=== PATIENT | female | born 1965 | race Two or more races ===

== ENCOUNTER 2023-05-02 10:07 | Outpatient (REF) | payer OTHER, SELFPAY ==
--- NOTE | ~2023-05-02 | MR_ITS ---
EXAMINATION: MR BRAIN WITHOUT CONTRAST CLINICAL INFORMATION: Myoclonus tremor. COMPARISON: There are no prior studies available for comparison. TECHNIQUE: MRI of the brain was obtained using routine sequences without contrast. FINDINGS: No diffusion abnormalities are identified to suggest an acute or subacute infarct. No mass effect or midline shift is seen. The ventricles and sulci are slightly commensurately prominent consistent with diffuse volume loss. There are a few scattered foci of hyperintense T2 and FLAIR signal in the periventricular and subcortical white matter, most consistent with mild chronic microvascular ischemic changes. No extra-axial fluid collections are seen. The brainstem appears normal. No pathologic magnetic susceptibility artifact is identified on the gradient refocused acquisition. The cerebellar tonsils have normal contour and position, and the craniocervical junction appears normal. Marrow signal and midline structures are normal. The major intracranial flow-voids at the level of the [place] are preserved. The dural venous sinus flow-voids are maintained. The mastoid air cells and paranasal sinuses are well-aerated. MR/MR head/brain wo con IMPRESSION: 1. There are no acute bleeds or territorial infarcts. No masses are demonstrated. 2. There are chronic microvascular ischemic changes and there is diffuse volume loss.
== END 2023-05-02 10:08 | disposition home or self-care (01) ==
LOC: HO.MRI 10:07
PROVIDERS: PCP Internal Medicine; Visit Provider Psychiatry & Neurology Neurology
DX: G25.3 Myoclonus (principal)
CPT/HCPCS: 70551

== ENCOUNTER 2024-10-05 15:36 | Outpatient (REF) | payer OTHER, SELFPAY ==
[2024-10-05 18:13] LABS: Folate 11.8 ng/mL (> or = 4.0); Vitamin B12 525 pg/mL (200-900)
== END 2024-10-05 15:37 | disposition home or self-care (01) ==
LOC: HO.LAB 15:36
PROVIDERS: PCP Internal Medicine; Visit Provider Registered Nurse
DX: G31.84 Mild cognitive impairment of uncertain or unknown etiology (principal)
CPT/HCPCS: 36415; 82607; 82746

== ENCOUNTER 2024-10-05 15:36 | Outpatient (AMB) | payer OTHER, SELFPAY ==
--- NOTE | 2024-10-05 15:46 | MHC.OFFVIS ---
Intake Visit Reasons: Follow up Allergies No Known Allergies Allergy (Verified 10/05/24 15:51) Medication List - Last Reconciled 10/05/24 by Jaki Barahona CNP amlodipine 5 mg PO DAILY clonazepam (Klonopin) 0.5 mg PO BEDTIME 30 days clonidine HCl 0.1 mg PO DAILY PRN cyclobenzaprine 10 mg PO TID duloxetine 60 mg PO BID famotidine 40 mg PO DAILY hydrochlorothiazide 25 mg PO DAILY hydroxyzine pamoate 25 - 50 mg PO BEDTIME lamotrigine 100 mg orally 1 tablet in AM and 2 tablets at bedtime; metformin 500 mg PO BID naproxen 500 mg PO DAILY olmesartan 40 mg PO DAILY HPI Comments Details: She was doing okay. She was taking clonazepam 0.5mg at bedtime along with lamotrigine 100mg in the morning and 200mg at bedtime. Involuntary movements were much better with medication. She was still tired during the day. Sleep was not so good, has CPAP but does not use. She was also having some trouble with word recall and thinking of words for certain things during conversations when speaking [place] which was her first language. Forgetful at times and misplaces things. She was sometimes calling her dogs by her children's names by accident. She had some labs done by PCP earlier this month including Lyme which was apparently negative and thyroid which was apparently okay. She could not remember if B12 was checked. Balance off at times. Mood was up and down. She was under some stress. She was working with therapist weekly and psychiatrist monthly. Involuntary movements were completely gone with clonazepam 0.5mg twice a day, but she was very tired with medication. She lost a lot of hair and tremors with Depakote although it was working well and stopped medication. Her myoclonic jerks had stopped for 1 month and now gets mild one every couple of weeks when stressed. She has sudden jerks in her body or limbs since Nov 2022 that can wake her up. Happens any time while awake or asleep multiple times a day now. No triggers except of she is startled. Can be either shoulder and occasionally the leg. Gets intermittent tremors. Has urinary urgency and occasional incontinence. Diffuse pains that come and go, relieved by naprosyn. Some palpitations continuing. Her hearing is not impaired. She has no tinnitus. There is no visual blurring of visual disturbance and no diplopia. Occasionally she gets some tingling in her hands and feet. She also has chronic pain in her whole body for several years from FM. Also has some neck pain and low back pain. She gets occasional sharp shooting pains in the scalp. MRI of the brain was done in November of 2014 and was personally reviewed by Dr. Nguyen, shows minimal microvascular white matter hyperintensities in the frontal lobe consistent with minimal microvascular disease. [facility] Medical History (Updated 10/05/24 @ 16:04 by Jaki Barahona, CHANA) Myoclonus Fibromyalgia Hypertension Dizziness Review of Systems Const Denies chills, Denies daytime sleepiness, Reports difficulty sleeping, Denies fatigue, Denies fever(s), Denies frequent falls, Reports headache(s), Denies increased appetite, Denies poor appetite, Reports snoring, Denies weakness, Denies weight gain and Denies weight loss Eyes Denies loss of vision ENT Denies vertigo, Reports dizziness, Reports headache(s) and Reports neck pain Card Denies chest pain at rest, Denies chest pain with activity, Denies syncope, Denies leg edema, Denies palpitations, Denies dyspnea and Denies dyspnea on exertion Resp Denies cough, Denies dyspnea, Denies dyspnea on exertion and Reports snoring GI Denies abdominal pain, Denies constipation, Denies heartburn, Denies diarrhea and Denies nausea Denies urinary frequency, Denies urinary incontinence and Denies urinary urgency Musc Denies abnormal gait, Reports back pain, Reports myalgias, Reports arthralgias, Reports neck pain, Reports numbness and Reports tingling Neuro Denies abnormal gait, Denies vertigo, Reports dizziness, Denies syncope, Denies frequent falls, Reports headache(s), Denies lack of coordination, Denies loss of vision, Reports memory loss, Reports numbness, Denies Other visual disturbances, Denies restless legs, Denies seizure-like activity, Reports tingling, Denies paresthesias, Reports tremor(s) and Denies weakness Psych Reports anxiety, Reports depression, Denies auditory hallucinations, Reports memory loss and Denies visual hallucinations Endo Denies fatigue and Denies palpitations Physical Exam Const Other: General Appearance:? normal, in no acute distress. Heart:? S1, S2 normal, no murmurs. Lungs:? clear anteriorly and posteriorly. Musculoskeletal:? normal. Extremities:? no edema. Psych:? alert, as below. Neuro Other: Abnormal Neurological Findings:?MMSE 22/30 Mental Status: alert, as below Cranial Nerves: Pupils are equal, round, and reactive to light. External ocular muscles are intact. Visual rocha are full, no ptosis. Face is symmetrical, no facial weakness or droop. Facial sensations are normal. Tongue protrudes in midline. Palate elevates symmetrically. Shoulder shrugging is normal Motor Examination: Normal muscle tone, bulk and strength. No atrophy or fasciculations. No drift of the extended upper extremities. DTR 2+. Plantars are flexor. Straight Leg R[place] degrees. Sensory Exam: Normal light touch, temperature, pinprick, vibration, and joint-position sensations. Rhomberg sign is absent. Coordination: No ataxia. No titubation. [id number], [id number] test, and rapid alternating movements were normal. Gait Exam: Within normal limits. Cerebellar Signs: [id number] and [id number] is normal. No dysdiadochokinesia. Extrapyramidal System: No tremor, rigidity with normal facial expressions. No bradykinesia. No bradyphrenia. Normal arm swing and posture. No propulsion or retropulsion. Speech: Normal. No dysphasia or dysarthria. MMSE Level of Consciousness: Alert. Orientation: Knows correct year, month, day and season. Does not know date. Knows correct city, county and state. Knows correct location and floor. Registration: Able to register 3 objects. Attention: Unable to do serial 7's Recall: Able to recall 1 out of 3 objects. Language: Normal spontaneous speech, fluency, repetition, naming, comprehension, reading, and writing. Total Score: 22/30. Results Reviewed Results Reviewed: 03/20/23 EEG- Recurrent paroxysmal sharp bursts of theta 0/5-2 secs right more than left hemisphere. 05/02/23 MRI chronic microvascular ischemic changes and there is diffuse volume loss. 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 Continue lamotrigine 100mg 1 tablet in the morning and 2 tablets at bedtime. (2) MCI (mild cognitive impairment): Code(s): G31.84 - Mild cognitive impairment of uncertain or unknown etiology Category: Medical Plan: Stay physically and socially active. She had labs done by PCP earlier this month. She could not remember if B12 level was checked and lab was ordered. Orders: Orders Vitamin B12 and Folate Today G31.84 - Mild cognitive impairment of uncertain or unknown etiology Coding Level of Care Code Est Pt Level 4 (92921) Diagnoses Myoclonus G25.3 MCI (mild cognitive impairment) G31.84
--- OUTSIDE RECORDS SUMMARY | 2024-10-05 16:04 | XMS_ITS | Clinical Summary ---
Author Organization [facility] [address] [facility] Building Address [address] [place] [address] Phone Care Team Providers Care Manager Credit Risk Name Role Phone Adriano Brandt MD Primary Care Provider [phone] Allergies No known active allergies Medications amphetamine-dextr oamphetamine (ADDERALL) 15 mg tablet Take 1 Tablet by mouth daily. Active DULoxetine (CYMBALTA) [address] capsule Take 1 Capsule by mouth daily. Active hydrOXYzine pamoate (VISTARIL) 25 mg capsule Per Psych 020 Active blood-glucose meter kit Use daily or as directed for monitoring of diabetes. 1 each 024 2024 Active lancets lancets Check blood sugar 4 times a day or as directed. 200 each 11 024 2024 Active glucose blood test stripIndications: Controlled type 2 diabetes mellitus without complication, without long-term current use of insulin ([facility] V24, [facility] V28) Use once daily to test blood sugar. Freestyle lite brand. 100 each 5 024 Active lamoTRIgine (LaMICtal) 100 mg tablet Take 1.5 tablets (150 mg total) by mouth 2 (two) times a day. 025 Active cyclobenzaprine (FLEXERIL) 10 mg tablet Take 1 tablet (10 mg total) by mouth if needed. 024 Active hydroCHLOROthiazi de (HYDRODIURIL) 25 mg tablet Take 1 tablet (25 mg total) by mouth 1 (one) time each day. Active clonazePAM (KlonoPIN) 0.5 mg disintegrating tablet Take 1 tablet (0.5 mg total) by mouth 1 (one) time each day. Active olmesartan (BENICAR) 40 mg tablet Take 1 tablet by mouth once daily 90 tablet 1 025 Active metFORMIN (GLUCOPHAGE) 500 mg tablet TAKE 1 TABLET BY MOUTH TWICE DAILY WITH MEALS 180 tablet 1 025 Active amLODIPine (NORVASC) 5 mg tablet Take 1 tablet (5 mg total) by mouth 1 (one) time each day. 90 tablet 1 025 Active omeprazole (PriLOSEC) [address] capsule Take 1 capsule (20 mg total) by mouth 1 (one) time each day. Do not crush or chew. 30 each 5 025 2024 Active naproxen (NAPROSYN) 500 mg tablet Take 1 tablet by mouth once daily 90 tablet 025 2024 Discontinued(T herapy completed) celecoxib (CeleBREX) 200 mg capsule Take 1 capsule (200 mg total) by mouth 2 (two) times a day. 60 each 5 025 2024 Discontinued acetaminophen (Tylenol 8 Hour) 650 mg 8 hr tablet Take 1 tablet (650 mg total) by mouth every 8 (eight) hours if needed for mild pain for up to 10 days. Do not crush, chew, or split. 30 tablet 025 2024 Active Problems Problem Noted Date Diagnosed Date Seizure ([facility] V24, [facility] V28) 01/28/2024 Gastroesophageal reflux disease without esophagi tis 02/02/2022 ROSALIA (obstructive sleep apnea) 11/29/2021 Chronic vertigo 09/25/2016 Low back pain with right-sided sciatica 11/10/19 14 Overview (01/10/2024): IMO update Hyperthyroidism 02/20/2012 Depression 08/04/2005 Fibromyalgia 08/04/2005 Primary hypertension 08/04/2005 Overview (01/10/2024): EKG normal 03/21/12 Stress test negative 03/31/12 Kidney stone 08/04/2005 Disorder of bone and cartilage 08/04/2005 Overview (01/10/2024): IMO update Encounters Date Type Department Care Team Description 09/15/2024 8:15 AM EDT [facility] [address] [place] [address] Adriano Brandt MD Type 2 diabetes mellitus without complication, without long-term current use of insulin ([facility] V24, [facility] V28) (Primary Dx); Gastroesophageal reflux disease, unspecified whether esophagitis present; Arthralgia, unspecified joint from Last 3 Months Immunizations Name Administration Dates Next Due Influenza trivalent, 0.5mL, preservative free (Fluarix; FluLaval; Fluzone) ages 6mo and older (Afluria) 3 years and older 12/20/2014,12/16/2007 Pneumococcal polysaccharide 23 valent (Pneumovax 23) 2yo and older 05/24/2017 Tdap Tetanus diptheria acell ular pertussis (Boostrix; Adacel) 7yo and older 05/24/2017 Surgical History Surgery Date Site/Laterality Comments OTHER SURGICAL HISTORY PROCEDURE: NM OOPHORECTOMY PRTL/TOT UNI/BI OVARIAN MALIGNANCY HYSTERECTOMY PROCEDURE: HISTORICAL TOTAL HYSTERECTOMY WITH BSO COLONOSCOPY PROCEDURE: HISTORICAL COLONOSCOPY; COMMENT: normal CARPAL TUNNEL RELEASE 06/24/2018 Right PROCEDURE: HISTORICAL CARPAL TUNNEL REL; COMMENT: Dr. Mckeon Medical History Medical History Date Comments Disorder of bone and cartila ge, unspecified 08/04/2005 DX:Disorder of bone and cart ilage, unspecified Depressive disorder, not els ewhere classified 08/04/2005 DX:Depressive disorder, not elsewhere classified Myalgia and myositis, unspecified 08/04/2005 DX:Myalgia and myositis, unspecified Calculus of kidney 08/04/2005 DX:Calculus o f kidney Essential hypertension, benign 08/04/2005 D X:Essential hypertension, benign Family History Medical History Relation Name Comments Stroke Father Other: tumor Mother portal vein (so urce ?) Breast cancer Neg Hx Colon cancer Neg Hx Ovarian cancer Neg Hx Relation Name Status Comments Father Mother Social History Tobacco Use Types Packs/Day Years Used Date Smoking Tobacco: Former Cigarettes 0.5 24.3 0 03/18/1995 - 07/06/2019 Smokeless Tobacco: Never Tobacco Cessation:Counseling Given: Not Answered Alcohol Use Standard Drinks/Week Comments No 0 (1 standard drink = 0.6 oz pur e alcohol) Housing Instability Answer Date Recorde d Are you worried that in the next 2 months you may not have stable housing? No 09/08/2024 Food Access & Nutrition Answer Date Rec orded Do you have access to a vari ety of food including fruits and vegetables? No 09/08/2024 Health Literacy Answer Date Recorded How often do you need to hav e someone help you when you read instructions, pamphlets, or other written material from your doctor or pharmacy? Never 09/08/2024 Caregiver: How often do you need to have someone help you when you read instructions, pamphlets, or other written material from your doctor or pharmacy? Not on file 09/08/2024 Financial Risk Answer Date Recorded How hard is it for you to pa y for the very basics like food, housing, medical care, and air conditioning / heating? Somewhat hard 09/08/2024 Transportation Answer Date Recorded Has the lack of transportati on kept you from meetings, work, or from getting things needed for daily living? No Has the lack of transportati on kept you from medical appointments or from getting medications? No 09/08/2024 Social Isolation Answer Date Recorded How often do you feel lonely or isolated from th ose around you? Always 09/08/2024 Food Risk Answer Date Recorded Within the past 12 months we worried whether our food would run out before we got money to buy more. Sometimes true 025 Within the past 12 months th e food we bought just didn't last and we didn't have money to get more. Sometimes true 09/08/2024 Dependent Care Answer Date Recorded Do you need help finding or paying for care for your loved ones. For example, child care education coordinator or elderly care for an older adult? No 09/08/2024 Education Answer Date Recorded Do you think completing more education or training, like finishing a GED, going to college, or learning a trade, would be helpful for you? No 09/08/2024 Employment and Income Answer Date Recor ded During the last four weeks, have you been actively looking for work? No 09/08/2024 Living Situation Answer Date Recorded What is your living situation? 0 09/08/2024 Comments No Sex and Gender Information Value Date Recorded Sex Assigned at Not on file Legal Sex Female 1:43 PM EST Gender Identity Not on file Sexual Orientation Not on file Obstetrics History Last Filed Vital Signs Vital Sign Reading Time Taken Comments Blood Pressure 136/86 09/15/2024 8:22 AM EDT Pulse 90 09/15/2024 8:22 AM EDT Temperature - - Respiratory Rate - - Oxygen Saturation - - Inhaled Oxygen Concentration - - Weight 80 kg (176 lb 4.8 oz) 09/15/2024 8:22 AM EDT Height 154.9 cm (5' 1 ) 09/15/2024 8:22 AM EDT Body Mass Index 33.31 09/15/2024 8:22 AM EDT Plan of Treatment Upcoming Encounters Date Type Department Care Team (Late st Contact Info) Description 11/19/2024 2:00 PM EDT Consult Gastroenterology - [place] [address] [facility] 175 [facility] [address] [place] [address] Dana Fermin PA 175 [facility] [address] [place] [address] 12/16/2024 1:00 PM EDT Office Visit [facility] [address] [facility] [address] [place] [id number] She Paul MD [address] [place] [address] 04/27/2025 9:30 AM EST Office Visit Bariatric Surgery - [place] 175 [facility] [address] [place] [phone] Cathleen Lennon PA 175 [facility] [address] [place] [address] Health Maintenance Due Date Last Done Comments Diabetes: Annual Foot Exam 1974 Diabetes: Annual Retina Eye Exam 1974 Pneumococcal Vaccine: 50+ Years (2 of 2 - PCV) 05/24/2018 05/24/2017 COVID-19 Vaccine (4 - season) 2023 07/24/2021, 06/08/2020, 05/11/2020 Breast Cancer Screening 12/16/2023 12/16/19 22, 09/16/2018, 09/12/2017, Additional history exists Diabetes: Annual Urine Albumin-Creatinine Ratio (uACR) 05/29/2024 Influenza Vaccine (#1) 2024 12/20/2014, 2007 Diabetes: Blood Sugar Control Test (HGBA1C) 11/18/2024 05/18/2024, 01/28/2024, 11/07/2023, Additional history exists Diabetes: Annual GFR (Glomerular Filtration Rate) 05/18/2025 05/18/2024, 01/28/2024, 11/07/2023, Additional history exists Hypertension/CHF/CAD Annual BMP Blood Test 05/18/2025 05/18/2024, 01/28/2024, 11/07/2023, Additional history exists Social Influencers of Health Screening 09/08/2025 09/08/2024 Colorectal Cancer Screening: Colonoscopy 01/01/2026 01/02/2016 DTaP,Tdap,and Td Vaccines (2 - Td or Tdap) 05/25/2027 05/24/2017 Cholesterol Screening (Lipid Panel) 05/18/2029 05/18/2024, 11/07/2023, 11/07/2023 RSV Immunization Adult Patients (1 - 1-dose 75+ series) 08/12/2039 HIV Screening Completed 08/16/2004 Hepatitis C Screening Completed 04/17/2005 Hepatitis B Vaccines Completed 01/07/2023, 10/18/19 23 Zoster Vaccines Completed 01/07/2023, 10/17/2022 Depression Screening Completed 09/08/2024 HIB Vaccines Aged Out No longer eligi ble based on patient's age to complete this topic HPV Vaccines Aged Out No longer eligi ble based on patient's age to complete this topic Hepatitis A Vaccines Aged Out No long er eligible based on patient's age to complete this topic IPV Vaccines Aged Out No longer eligi ble based on patient's age to complete this topic MMR Vaccines Aged Out No longer eligi ble based on patient's age to complete this topic Meningococcal ACWY Vaccine Aged Out N o longer eligible based on patient's age to complete this topic Meningococcal B Vaccine Aged Out No l onger eligible based on patient's age to complete this topic RSV Immunization Patients Under 20 months Aged Out No longer eligible based on patient's age to complete this topic Varicella Vaccines Aged Out No longer eligible based on patient's age to complete this topic Procedures Procedure Name Priority Date/Time Associated Diagnosis Comments RHEUMATOID FACTOR Routine 09/30/2024 10: 41 AM EDT Arthralgia, unspecified joint URIC ACID Routine 09/30/2024 10:41 AM EDT Arthralgia, unspecified joint BORRELIA BURGDORFERI ANTIBODY Routine 09/30/2024 10:41 AM EDT Arthralgia, unspecified joint ABDIAZIZ IFA WITH TITER AND PATTERN Routine 09/30/2024 10:41 AM EDT Arthralgia, unspecified joint SEDIMENTATION RATE Routine 09/30/2024 10 :41 AM EDT Arthralgia, unspecified joint BASIC METABOLIC PANEL Routine 05/18/2024 10:34 AM EST Prediabetes Hyperglycemia HEMOGLOBIN A1C Routine 05/18/2024 10:34 AM EST Prediabetes Hyperglycemia LIPID PANEL WITH REFLEX TO DIRECT LDL Routine 05/18/2024 10:34 AM EST Prediabetes SCREENING MAMMOGRAPHY BI 2-VIEW BREAST INC CAD Routine 12/15/2021 4:02 PM EDT Encounter for screening mammogram for malignant neoplasm of breast COLONOSCOPY Routine 01/02/2016 HEPATITIS C SCREENING Routine 04/17/2005 HIV SCREENING Routine 08/16/2004 from Last 3 Months or Most Recently Relevant to Health Maintenance Results * ABDIAZIZ IFA with titer and pattern (09/30/2024 10:41 AM EDT) [facility] ABDIAZIZ Negative Negative 10/01/2024 10:18 AM EDT [facility] Blood Venous blood specimen / Unknown Venipuncture / Unknown 09/30/2024 10:41 AM EDT 09/30/2024 10:41 AM EDT us Adriano Brandt MD LAB BLOOD ORDERABLES Final Res ult Performing Organization Address [facility] Co de Phone Number [facility] [address] [place] [address], [place] [phone] * Borrelia burgdorferi antibody (09/30/2024 10:41 AM EDT) [facility] Lyme Ab Negative Negative LAB CHEMISTRY METHOD 10/01/2024 9:45 AM EDT [facility] Comment: No laboratory evidence of infection with B. burgdorferi (Lyme disease). Negative results may occur in patients recently infected (<=14 days) with B. burgdorferi. If recent infection is suspected, repeat testing on a new sample collected in 7- 14 days is recommended. Blood Venous blood specimen / Unknown Venipuncture / Unknown 09/30/2024 10:41 AM EDT 09/30/2024 10:41 AM EDT us Adriano Brandt MD LAB BLOOD ORDERABLES Final Res ult Performing Organization Address [facility]/ZIP Co de Phone Number [facility] [address] [place] [address], [place] [phone] * (ABNORMAL) Sedimentation rate (09/30/2024 10:41 AM EDT) [facility] Sed Rate 39(H) 0 - 30 mm/hr LAB HEMETOLOGY METHOD 09/30/2024 2:14 PM EDT [facility] Blood Venous blood specimen / Unknown Venipuncture / Unknown 09/30/2024 10:41 AM EDT 09/30/2024 10:41 AM EDT us Adriano Brandt MD LAB BLOOD ORDERABLES Final Res ult Performing Organization Address [facility]/ZIP Co de Phone Number [facility] [address] [place] [address], [place] [phone] * Rheumatoid factor (09/30/2024 10:41 AM EDT) Rheumatoid Factor <10.0 <15.0 I Unit/mL LAB CHEMISTRY METHOD 09/30/2024 5:25 PM EDT [facility] Blood Venous blood specimen / Unknown Venipuncture / Unknown 09/30/2024 10:41 AM EDT 09/30/2024 10:41 AM EDT us Adriano Brandt MD LAB BLOOD ORDERABLES Final Res ult Performing Organization Address [facility] de Phone Number [facility] [address] [place] [address], [place] [phone] * Uric acid (09/30/2024 10:41 AM EDT) Uric Acid 4.5 3.1 - 7.8 mg/dL LAB CHEMISTRY METHOD 09/30/2024 5:25 PM EDT [facility] Blood Venous blood specimen / Unknown Venipuncture / Unknown 09/30/2024 10:41 AM EDT 09/30/2024 10:41 AM EDT us Adriano Brandt MD LAB BLOOD ORDERABLES Final Res ult Performing Organization Address City/[facility]/ZIP Co de Phone Number [facility] [address] [place] [address], [place] [phone] * (ABNORMAL) Lipid panel with reflex to direct LDL (05/18/2024 10:34 AM EST) Cholesterol 188 0 - 200 mg/dL LAB CHEMISTRY METHOD 05/18/2024 3:07 PM EST [facility] Triglycerides 77 0 - 150 mg/dL LAB CHEMISTRY METHOD 05/18/2024 3:07 PM [facility] HDL 72 >=40 mg/dL LAB CHEMISTRY METHOD 05/18/2024 3:07 PM [facility] LDL Calculated 101(H) 0 - 100 mg/dL LAB CHEMISTRY METHOD 05/18/2024 3:07 PM [facility] VLDL Cholesterol [facility] 15.4 mg/dL LAB CHEMISTRY METHOD 05/18/2024 3:07 PM [facility] Non HDL Chol. (LDL+VLDL) 116 <145 mg/dL LAB CHEMISTRY METHOD 05/18/2024 3:07 PM [facility] Chol/HDL Ratio 2.6 0.0 - 4.4 LAB CHEMISTRY METHOD 05/18/2024 3:07 PM [facility] Blood Venous blood specimen / Unknown Venipuncture / Unknown 05/18/2024 10:34 AM EST 05/18/2024 10:34 AM EST Polly Kennedy BUSINESS CONTINUITY CONSULTANT LAB BLOOD ORDERABLES Final Resu lt [facility] [address] [place] [address], * (ABNORMAL) Hemoglobin A1c (05/18/2024 10:34 AM EST) Hemoglobin A1C 7.9(H) <6.5 % LAB CHEMISTRY METHOD 05/19/2024 11:30 AM EST [facility] Mean Bld Glu Estim. 180 mg/dL LAB CHEMISTRY METHOD 05/19/2024 11:30 AM [facility] Blood Venous blood specimen / Unknown Venipuncture / Unknown 05/18/2024 10:34 AM EST 05/18/2024 10:34 AM EST us Polly Kennedy NP LAB BLOOD ORDERABLES Final Resu lt [facility] [address] [place] [address], * (ABNORMAL) Basic metabolic panel (05/18/2024 10:34 AM EST) Sodium 142 133 - 145 mmol/L LAB CHEMISTRY METHOD 05/18/2024 3:07 PM [facility] Potassium 5.0 3.5 - 5.5 mmol/L LAB CHEMISTRY METHOD 05/18/2024 3:07 PM [facility] Chloride 108 96 - 110 mmol/L LAB CHEMISTRY METHOD 05/18/2024 3:07 PM [facility] CO2 29 21 - 32 mmol/L LAB CHEMISTRY METHOD 05/18/2024 3:07 PM [facility] Anion Gap 5 3 - 11 LAB CHEMISTRY METHOD 05/18/2024 3:07 PM [facility] Glucose 138(H) 70 - 100 mg/dL LAB CHEMISTRY METHOD 05/18/2024 3:07 PM [facility] BUN 12 5 - 25 mg/dL LAB CHEMISTRY METHOD 05/18/2024 3:07 PM [facility] Creatinine 0.70 0.50 - 1.10 mg/dL LAB CHEMISTRY METHOD 05/18/2024 3:07 PM [facility] eGFR 100 >=60 mL/min/1. 73m2 LAB CHEMISTRY METHOD 05/18/2024 3:07 PM [facility] Comment:Calculation based on the Chronic Kidney Disease Epidemiology Collaboration (CKD-EPI) equation refit without adjustment for race. BUN/Creatinine Ratio 17.1 LAB CHEMISTRY METHOD 05/18/2024 3:07 PM EST [facility] Calcium 9.4 8.5 - 10.5 mg/dL LAB CHEMISTRY METHOD 05/18/2024 3:07 PM EST [facility] Blood Venous blood specimen / Unknown Venipuncture / Unknown 05/18/2024 10:34 AM EST 05/18/2024 10:34 AM EST Polly Kennedy NP LAB BLOOD ORDERABLES Final Resu lt [facility] ([facility]) [facility] [address] [place] [address], * SCREENING MAMMOGRAPHY BI 2-VIEW BREAST INC CAD (12/15/2021 4:02 PM EDT) Anatomical Region Laterality Modality Radiographic Rhonda ging 08/03/2021 9:17 AM EDT Narrative 12/16/2021 3:57 PM EDT This is a summary report. The complete report is available in the patient's medical record. If you cannot access the medical record, please contact the sending organization for a detailed fax or copy. Exam: Screening mammogram Findings: Digital bilateral full-field screening mammography is performed with tomosynthesis and interpreted with the aid of computer-aided detection. Comparison is made with 09/16/2018 and 09/12/2017. Breast parenchyma is composed of scattered fibroglandular densities. No new suspicious mass, architectural distortion, or suspicious calcifications. Impression: No mammographic evidence of malignancy. BI-RADS 1 - negative Procedure Note Martha Danielle MD - 03/06/2022 This is a summary report. The complete report is available in thepatient's medical record. If you cannot access the medical record, pleasecontact the sending organization for a detailed fax or copy. Exam: Screening mammogram Findings: Digital bilateral full-field screening mammography is performedwith tomosynthesis and interpreted with the aid of computer-aideddetection. Comparison is made with 09/16/2018 and 09/12/2017. Breast parenchyma is composed of scattered fibroglandular densities. Nonew suspicious mass, architectural distortion, or suspiciouscalcifications. Impression: No mammographic evidence of malignancy. BI-RADS 1 - negative Adriano Brandt MD IMG XR PROCEDURES Final Result * Colonoscopy (01/02/2016) Colonoscopy Abstracted, no interpretation Anatomical Region Laterality Modality Other Historical Provider HEALTH MAINTENANCE Final Result * Hepatitis C Screening (04/17/2005) Hepatitis C Screening Abstracted Historical Provider HEALTH MAINTENANCE Final Result * HIV Screening (08/16/2004) [facility] HIV Screening Abstracted Historical Provider HEALTH MAINTENANCE Final Result from Last 3 Months or Most Recently Relevant to Health Maintenance Insurance [facility] [address] Care Teams Manager Credit Risk Relationship Specialty Start Date End Date Adriano Brandt MD [address] [place] [id number] PCP - General Internal Medicine 01/09/24
== END 2024-10-05 16:16 | disposition home or self-care (01) ==
LOC: HO.HSM 15:36
PROVIDERS: PCP Internal Medicine; Visit Provider Registered Nurse
DX: G25.3 Myoclonus (principal); G31.84 Mild cognitive impairment of uncertain or unknown etiology
CPT/HCPCS: 99214